=== PATIENT | male | born 1935 | race Caucasian/White ===

== ENCOUNTER 2016-06-29 10:43 | Day surgery (SDC) | payer MEDICARE ==
--- NOTE | 2016-06-08 08:50 | PCM.ANEPRE ---
Anesthesia Pre-Op Review Reason for Review: CO MORBIDITIES-PULM.,CARDIAC,HX CVA TESTING SCHEDULED Anesthesia Recommendations: Delay until Additional Data Obtain Additional Comments 80 yo M with multiple significant comorbidities, scheduled for cysto with TURBT. History of tracheal resection for cancer, CVA, CABG, and mental cell lymphoma. Recent worsening SOB with mild/mod exertion, Detailed cardiology note form 06/02 reviewed, echo, stress test, and PFTs ordered. Folder Hand states that he needs this information for appropriate risk stratification for surgery and is scheduled for follow-up with him prior to surgery. NSQIP risk calculator with above average risk for all categories, 7.2% risk of serious complication Delay surgery until cardiology workup complete and appropriate clearance received from cardiology to proceed. Wilian Mcintosh Chart Reviewed by: Bjorn Jimenez MD Jun 08, 2016 08:50
[~2016-06-29] VITALS: Ht 180.3 cm; Wt 82.2 kg
[2016-06-29] VITALS (10 sets, daily range): BP systolic 96–133; BP diastolic 32–65; PULSE 58–66; RESP 13–19; O2SAT 93–100
--- NOTE | 2016-06-29 07:22 | PCM.HPANE ---
Patient Data Surgeon Admitting Provider: Attending Provider:Betsy Marion MD Primary Care Physician:Susana Alan MD Other Provider:[facility] Reason for Visit Bladder Tumor Ht/WT & BMI Height (Feet): 5 Height (Inches): 10.00 Weight (Kilograms): 83.189 Body Mass Index 26.00 Allergies Coded Allergies: hydromorphone (Verified Adverse Reaction, Severe, 2ndary hypotension, ) Past Anesthesia History Anesthesia History: Denies:: Abnormal Airway (S/P TRACHEAL RESECTION FOR ADENOCYSTIC CA), Anesthesia Reactions, Difficult Intubation (S/P VOCAL CHORD MEDIALIZATION FOR PARALYSIS), Malignant Hyperthermia Diabetes History Hx Diabetes?: No MRSA MRSA: No Medications Blood Thinner: Aspirin Hypertension Medication: Yes (LOSARTAN) Home Meds Incl Beta Timothy: Yes (METOPROLOL) Reported Medications [place]-3 Fatty Acids/Fish Oil ([place] 3 Fish Oil Softgel)1 Each Capsule.dr1 Each PO BID 06/07/16 Nitroglycerin SL (Nitrostat)0.4 Mg Tab.subl0.4 Mg SL Q5MIN PRN ANGINA #1 BOTTLE 06/07/16 Metoprolol Tartrate 25 Mg Ybzqsh47 Mg PO BID 30 Days Ref 0 06/07/16 Losartan Potassium 25 Mg Ympmyj55 Mg PO DAILY 06/07/16 Loperamide 2 Mg Capsule2 Mg PO Q4H PRN PRN PT TAKING 4 TABS DAILY 06/07/16 Ubidecarenone (Coenzyme Q10)100 Mg Lystnmg403 Mg PO DAILY 06/07/16 Calcium Carbonate/Vitamin D3 (Calcium 600 + Vit D3 Caplet)600 Mg-800 Tablet1 Each PO DAILY 06/07/16 [Benedryl] No Conflict Rldie41-94 Mg PO HS PRN PRN 06/07/16 Atorvastatin (Lipitor)40 Mg Lfnuqe37 Mg PO DAILY Ref 0 06/07/16 Aspirin 81 Mg Ozayjw93 Mg PO DAILY Ref 0 06/07/16 History History of ENT Problems?: Yes HEENT History: Denies:: Abnormal Airway (S/P TRACHEAL RESECTION FOR ADENOCYSTIC CA) Difficult Intubation (S/P VOCAL CHORD MEDIALIZATION FOR PARALYSIS) Hx of Heart Problems?: Yes Cardiovascular History: Positive for:: Cardiac Surgery (HEART CATH 03/2008 S/ P 4 VESSEL W/ PFO CLOSURE 05/2008) Chest Pain (ANGINA (STABLE EXERTIONAL)) Coronary Artery Disease Hypertension (HYPERLIPIDEMIA) Valvular Heart Disease (MOD TR) Denies:: Congestive Heart Failure Heart Murmur (ECHO 05/2016 EF 55-60% MOD PULM. HTN) Irregular Heartbeat (PT REPORTS PALPITATIONS) Other Cardiac History: 06/02/16 PLATELETS 138 Hx of Respiratory Problem?: Yes Respiratory History: Positive for:: Asthma COPD (CT/LUNG EXAM BY PCP SUSPICIOUS FOR PULMONARY FIBROSIS) Dyspnea ([facility] WORSENING PFT 05/2016) Denies:: Use of C-PAP Machine ([facility] 2004 ?? RESULTS) Hx Neurologic Problems?: Yes Neurological History: Positive for:: CVA (10/2007 W/ DEFICITS IN VISION, SPPEECH & RT HAND SENSATION) Headaches (OCCULAR/OPTICAL) Hx of GI Problems?: Yes Other GI Pertinent History: HX IBS W/ DIARRHEA Hx of Problems?: Yes Other Pertinent History: S/P TURBT'S X3 RECURRENT BLADDER TUMOR/CA=CURRENT PROBLEM Male Hx: Denies:: Prostate Problems Scrotal Mass Testicular Surgery Skin History: Positive for:: History Skin Disorders? 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,BLADDER,TRACHEA,SQUAMOUS CELL ) Hospitalization Denies:: Endocrine Disease Thyroid Disease Hx Diabetes: No Other Pertinent History: S/P INGUINAL LYMPH NODE BX TO DX MANTLE CELL LYMPHOMA Hx Alcohol Use: YesAlcoholic Drinks Per Day: 2-3/DAY Smoking Status: Former Smoker Have You Smoked inLast 12 mo: NoApprox How Many Cigarettes/day: 20YR HX 1 PPD Stop/Bang S-Snoring: Do You Snore Loudly: No T-Tired: feel tired, fatigued: No O-Obsered: Observed not breath: No P-Blood Pressure: treated: Yes B- Body Mass Index > 35 kg/m2: No A- Age over 50: Yes N- Neck Large Circumference: No G- Gender Male: Yes JC Total Score: 3 Risk Assessment Category Category 1A: Patient has history of documented sleep apnea, and HAS NOT received any narcotic, sedative or anesthesia administration during this stay. Category 1B: Patient has history of documented sleep apnea, and HAS received any narcotic , sedative or anesthesia administration during this stay Category 2: Patient has SUSPECTED Obstructive Sleep Apnea, and HAS received any narcotic , sedative or anesthesia administration during this stay. Category 3: Patient has SUSPECTED Obstructive Sleep Apnea and HAS NOT received narcotic, sedative or anesthesia administration during this stay. Category 4: Outpatient in Procedural Areas with known sleep apnea or who screen positive for High Risk via the STOP/BANG questionnaire. Exam Exam General Appearance: Alert, Oriented X3, Cooperative, No Acute Distress HEENT/AIRWAY: MP 1 Lungs: Normal Air Movement Heart: Regular Rate/Rhythm Plan Impression Patient chart reviewed, patient interviewed and anesthestic plan with risks, benefits, and alternatives discussed, and informed consent obtained. ASA Physical Status: ASA3 Severe Disease Anesthetic Plan: GA Bene/Risks/Altern/Consents: Yes HP Complete Prior to Induction: Yes Vanessa Ngo DO Jun 29, 2016 07:22
[~2016-06-29 10:43] MED LIST: ASPI-973 PO; BENEDRYL PO; CALC-975 PO; CeFAZolin Inj 2 GM in IV Premix 1 EACH IV ONE; LIP40 PO; LOPE2CAP PO; LOSA25TA21 PO; Lactated Ringer's 1,000 ML IV SCH; METO25TA6 PO; NITR0.4T SL; OMEG1CAP25 PO; UBID100C PO
[2016-06-29] MEDS ORDERED: fentaNYL-PF 50 mCg/mL 2 mL Inj ONE (10:44)
[2016-06-29] MEDS ORDERED: EPHEDrine/NS 5 mg/mL 5 mL Syringe ONE (10:44)
[2016-06-29] MEDS ORDERED: Propofol 10,000 mCg/mL 20 mL Inj ONE (10:44)
[2016-06-29] MEDS ORDERED: Dexamethasone 4 mg/mL Inj ONE (10:44)
[2016-06-29] MEDS ORDERED: Lidocaine PF 1% 30 mL Inj ONE (10:44)
[2016-06-29] MEDS ORDERED: Ondansetron 2 mg/mL 2 mL Inj ONE (10:44)
[2016-06-29] MEDS: Lactated Ringer's 1,000 ML IV SCH ×2 (11:00→11:46)
[2016-06-29] MEDS ORDERED: CeFAZolin Inj 2 gm / 50mL D5W IV ONE (11:21)
[2016-06-29] MEDS ORDERED: Belladonna Alk-Opium 60 mg Rectal Suppository RECTAL ONE (11:43)
[2016-06-29] MEDS ORDERED: Ondansetron 2 mg/mL 2 mL Inj IVPUSH PRN (12:10)
[2016-06-29] MEDS ORDERED: Phenylephrine 10,000 mCg/mL Inj IVPUSH PRN (12:10)
[2016-06-29] MEDS ORDERED: EPHEDrine Sulfate 50 mg/mL Inj IVPUSH PRN (12:10)
[2016-06-29] MEDS ORDERED: MetoCLOpramide 5 mg/mL 2 mL Inj IVPUSH PRN (12:10)
[2016-06-29] MEDS ORDERED: Lactated Ringer's 500 ML IV PRN (12:10)
[2016-06-29] MEDS ORDERED: fentaNYL-PF 50 mCg/mL 2 mL Inj IVPUSH PRN (12:10)
[2016-06-29] MEDS ORDERED: Lactated Ringer's 1,000 ML IV SCH (12:10)
[2016-06-29] MEDS ORDERED: HYDROcodone-APAP 5-325 mg Tablet PO PRN (12:15)
[2016-06-29 12:27] LABS: Mean Corpuscular Hemoglobin 27.3 pg (27.0-35.0); Mean Corpuscular Volume 89.2 fL (81-100)
--- NOTE | 2016-06-29 12:38 | PCM.ANEP1 ---
Post Anesthesia Phase 1 PACU Phase 1 Assessment Vital Signs Vital Signs Date Time Temp Pulse Resp B/P Pulse Ox O2 Delivery O2 Flow Rate FiO2 06/29/16 12:30 64 16 96/32 93 Room Air 06/29/16 12:25 64 17 116/37 97 Room Air 06/29/16 12:20 66 19 121/59 100 Simple Mask 8 06/29/16 12:15 36.5 60 13 117/53 100 Simple Mask 8 06/29/16 11:06 36.5 58 18 133/65 100 Room Air Anesthetic Administered: GA Level of Alertness: Sleeping, hard to arouse MYRICK's with Equal Strength: Yes Pain: No Nausea or Vomiting: No Oxygen Delivery: Simple Mask Lungs: Normal Air Movement Vanessa Ngo DO Jun 29, 2016 12:38
--- NOTE | 2016-06-29 13:00 | PCM.ANEP2 ---
Post Anesthesia Evaluation ASA/CMS Post Anesthesia VS in Patient's Normal Range?: Yes Resp Stable; Airway Patent?: Yes CV Function & Hydration Stable: Yes Mental Status Recovered?: Yes Pain control Satisfactory?: Yes N/V Control Satisfactory?: Yes Vanessa Ngo DO Jun 29, 2016 13:00
--- NOTE | 2016-06-29 20:55 | OP ---
[address] [address] OPERATIVE REPORT PATIENT: RINKU HUSSEIN : 1935 MR#: [id number] ADMIT: 06/29/2016 JOB ID: [id number] DATE OF SURGERY: 06/29/2016 SURGEON: Betsy Marion MD PREOPERATIVE DIAGNOSIS(ES): Transitional cell carcinoma of the bladder. POSTOPERATIVE DIAGNOSIS(ES): Transitional cell carcinoma of the bladder. PROCEDURE: 1. Cystoscopy. 2. Biopsy. 3. Transurethral resection of bladder tumor, small, 2 cm. ANESTHESIA: General anesthetic, Dr. Ngo. DESCRIPTION OF PROCEDURE: Under general anesthetic, the patient was placed in lithotomy position. Genitalia prepped and draped in a sterile manner. A 22-Guyanese cystoscope was introduced through a normal urethra. Located on the left side wall of the bladder were several bladder tumors, the largest approximately 2 cm across. Biopsies were taken using the cup biopsy forceps. Urethra was dilated to 28-Guyanese with Jaylin sounds. A 26-Guyanese Drake-type resectoscope was introduced into the bladder. The remainder of the biopsy tumor was resected and several smaller tumors were cauterized. After achieving hemostasis, it was elected not to leave a Payne catheter in place. The patient tolerated the procedure well and left the operating room in good condition.
--- NOTE | 2016-06-30 11:29 | PATH ---
SURGICAL PATHOLOGY Attending Physician:Betsy Marion MD () CASE STATUS: Signed Out PATIENT NAME: RINKU HUSSEIN PID: [id number] : 1935 DATE COLLECTED:06/29/2016 19:55 SPECIMEN: Bladder, Biopsy CLINICAL HISTORY: BLADDER TUMOR 1). BLADDER TUMOR, LEFT LATERAL WALL FINAL DIAGNOSIS: Bladder Tumor, Left Lateral Wall: High-grade papillary urothelial carcinoma. The tumor does not invade lamina propria. Muscularis propria is present and is uninvolved by tumor. ICD10 C67.2 NOTE: As part of routine clinical quality manager, this case is reviewed by Dr. Vance Diaz, who concurs with the diagnosis. GROSS DESCRIPTION: The specimen is received in one formalin filled container labeled with the patient's name, sublabeled "bladder tumor left lateral wall" and consists of 2 portions of tissue which aggregate to 0.4 x 0.4 x 0.3 CM. The specimen is entirely submitted in one cassette. 06/29/2016 [facility] MICRO DESCRIPTION: Please see diagnosis. ICD-9 CODES: CPT CODES: 1: 31883 Electronically Signed Out Kesha Rodney MD [facility]ology [facility] [address], [place] [address] Technical component performed at [facility], [address] [place] [address] Ave[address], [place], [address]
== END 2016-06-29 23:59 | disposition home or self-care (01) ==
LOC: SAS 10:43
PROVIDERS: ATTEND Urology
PROC: 0TBB8ZX Excision of Bladder, Via Natural or Artificial Opening Endoscopic, Diagnostic (ICD-10-PCS; 2016-06-29)
PROC: 0TBB8ZZ Excision of Bladder, Via Natural or Artificial Opening Endoscopic (ICD-10-PCS; principal; 2016-06-29 12:45)
DX: C67.2 Malignant neoplasm of lateral wall of bladder (principal); I10 Essential (primary) hypertension; I25.10 Atherosclerotic heart disease of native coronary artery without angina pectoris; Z86.73 Personal history of transient ischemic attack (TIA), and cerebral infarction without residual deficits; Z95.1 Presence of aortocoronary bypass graft; E78.5 Hyperlipidemia, unspecified; Z79.82 Long term (current) use of aspirin; Z87.891 Personal history of nicotine dependence; I65.23 Occlusion and stenosis of bilateral carotid arteries; E78.00 Pure hypercholesterolemia, unspecified; J84.10 Pulmonary fibrosis, unspecified
CPT/HCPCS: 36415; 52235; 80048; 85027; 88305; J0690; J1100; J2405; J3010; J7120